=== PATIENT | male | born 1955 | race Caucasian/White ===

== ENCOUNTER 2017-08-04 07:18 | Day surgery (SDC) | payer OTHER ==
[2017-07-27 14:11] VITALS: BMI 30.7
--- NOTE | 2017-08-04 09:35 | OP ---
Operative Note - Note: Operative Date: 08/04/17 Pre-Operative Diagnosis: Arthrofibrosis both knees s/p TKR Operation: DARIN Post-Operative Diagnosis: Same as Pre-op Surgeon: Orestes Wagner Anesthesia: General Operative Report Dictated: Yes
--- NOTE | 2017-08-04 09:35 | DS ---
Physical Examination Vital Signs: Vital Signs Temperature 98.1 F 08/04/17 08:03 Pulse Rate 68 08/04/17 08:03 Respiratory Rate 18 08/04/17 08:03 Blood Pressure 136/86 08/04/17 08:03 O2 Sat by Pulse Oximetry (%) 97 08/04/17 08:03 Discharge Summary Reason For Visit: ARTHROFIBROSIS BILATERAL KNEE Condition: Good - Instructions Diet, Activity, Other Instructions: A manipulation may produce discomfort in some people. Tylenol should suffice but you have a narcotic available at your pharmacy if necessary. Dispose of all unused narcotics please. Move your knee 5 times per day. Move as much as you tolerate. Restart your physical therapy as soon as possible too. Swelling may occur after a manipulation. It will go down over time Ice or heat may be used... whichever feels more comforting. Call [facility] for an appointment to see my in 4-6 WEEKS. [phone] Disposition: HOME - Home Medications Comprehensive Discharge Medication List: Ambulatory Orders Acetaminophen [Tylenol .Extra-Strength -] 500 mg PO PRN PRN 07/27/17 Aspirin Coated [Ecotrin -] 81 mg PO DAILY 07/27/17
[2017-08-04] MEDS ORDERED: oxyCODONE HCL 5 MG TABLET PO PRN ×2 (10:07)
[2017-08-04] MEDS ORDERED: ONDANSETRON 4 MG/2 ML VIAL IVPUSH PRN (10:07)
[2017-08-04] MEDS ORDERED: PROMETHAZINE HCL 25 MG/1 ML VIAL IVPUSH PRN (10:07)
[2017-08-04] MEDS ORDERED: ONDANSETRON 4 MG/2 ML VIAL IVPUSH ONE (10:07)
[2017-08-04] MEDS ORDERED: LACTATED RINGERS SOLUTION 1,000 ML IV SCH (10:15)
[2017-08-04 11:05] VITALS: TEMP 98.1
[2017-08-04 11:27] VITALS: BP 134/85; PULSE 73
== END 2017-08-04 11:37 | disposition home or self-care (01) ==
LOC: FASU 07:18
PROVIDERS: ATTEND Orthopaedic Surgery
PROC: 0SNDXZZ Release Left Knee Joint, External Approach (ICD-10-PCS; 2017-08-04)
PROC: 0SNCXZZ Release Right Knee Joint, External Approach (ICD-10-PCS; principal; 2017-08-04 09:47)
DX: M24.662 Ankylosis, left knee (principal); M24.661 Ankylosis, right knee; Z96.653 Presence of artificial knee joint, bilateral
CPT/HCPCS: 94760